=== PATIENT | female | born 1950 | race Caucasian/White ===

== ENCOUNTER 2017-03-20 05:43 | Inpatient (IN) | payer OTHER ==
[2017-03-20] VITALS (7 sets, daily range): BP systolic 101–161; BP diastolic 48–84
[~2017-03-20] VITALS: Ht 152.4 cm; Wt 108.9 kg
--- NOTE | ~2017-03-20 | O ---
[facility] [place] [address] OPERATIVE REPORT Name: ZANE IBARRA Room #: 407-P [facility] IN M.R.#: [id number] Admission: 03/20/17 Attend Phys: Matti Cooper MD Discharge: Date of : 50 Report #: [id number] THIS REPORT FOR: //name// CC: DAMARI Cooper Physician staff DATE OF SERVICE: 03/20/2017 PREOPERATIVE DIAGNOSIS: Right foot Lisfranc fracture dislocation. POSTOPERATIVE DIAGNOSIS: Right foot Lisfranc fracture dislocation. PROCEDURE: Right foot Lisfranc percutaneous screw fixation. SURGEON: Matti Cooper M.D. ANESTHESIA: General. ESTIMATED BLOOD LOSS: Minimal. DRAINS: None. TOURNIQUET TIME: 18 minutes. DESCRIPTION OF PROCEDURE: The patient brought to the operating room where she was placed under general anesthesia. Once under adequate general anesthesia, her right lower extremity was prepped and draped in sterile manner. The extremity was elevated, exsanguinated, tourniquet placed to 300 mmHg. Utilizing fluoroscopy for guidance, a bone reduction tenaculum was placed at the base of the second metatarsal to the medial cuneiform across the Lisfranc joint. Once in place, fixation was then achieved across the joint with a single 4.0 cannulated screw placed under fluoroscopic guidance. Excellent fixation and alignment was achieved in this manner as verified under fluoroscopy. Once complete, the wound was irrigated copiously and closed with chio for the skin. The wounds were dressed with Xeroform, 4 x 4s, and a sterile soft compressive dressing was placed. Tourniquet was let down 18 minutes. Toes were pink and warm with good capillary refill. There were no complications from the procedure. The patient tolerated the procedure well and went to the recovery room without incident. <ELECTRONICALLY SIGNED> By: Matti Cooper MD 03/23/17 [id number] Matti Cooper MD /nt
[~2017-03-20 05:43] MED LIST: ASPIR 8181 MG PO; CARVEDILOL3.125 MG PO; DICLOFENAC SODI75 MG PO; FLEXERIL PO; LASIX 20 MG TAB20 MG PO; NEXIUM40 MG PO; SINGULAIR 10 MG10 M1 PO; SYMBICORT160 MCG/4. INH; SYNTHROID100 MCG PO; VENTOLIN HFA INH8 GM INH
[2017-03-20 09:30] LABS: CALCIUM 8.5 mg/dL (8.5-10.1); POTASSIUM 3.3 mmol/L (3.5-5.1)
[2017-03-21 00:44] VITALS: BP 153/68
[2017-03-21 03:09] VITALS: BP 134/79
[2017-03-21 03:14] VITALS: BP 130/75
[2017-03-21 03:41] LABS: POTASSIUM 3.6 mmol/L (3.5-5.1)
[2017-03-21 03:42] LABS: HEMATOCRIT 28.4 % (37.0-47.0); HEMOGLOBIN 9.1 gm/dL (12.0-15.0)
[2017-03-21 08:20] VITALS: BP 141/68
[2017-03-21 11:03] LABS: CREATININE 1.7 mg/dL (0.6-1.0)
[2017-03-21 16:20] VITALS: BP 112/51
[2017-03-21 20:00] VITALS: BP 110/63
[2017-03-22 04:00] VITALS: BP 131/70
[2017-03-22 04:27] LABS: CALCIUM 8.1 mg/dL (8.5-10.1); CREATININE 1.3 mg/dL (0.6-1.0); MAGNESIUM 1.9 mg/dL (1.8-2.4); POTASSIUM 3.9 mmol/L (3.5-5.1)
[2017-03-22 07:50] VITALS: BP 111/54
[2017-03-22 16:20] VITALS: BP 114/59
[2017-03-22 20:30] VITALS: BP 103/43
[2017-03-23 03:50] VITALS: BP 130/62
[2017-03-23 04:42] LABS: CALCIUM 8.3 mg/dL (8.5-10.1); CREATININE 1.3 mg/dL (0.6-1.0); POTASSIUM 4.2 mmol/L (3.5-5.1)
[2017-03-23 08:29] VITALS: BP 132/63
[2017-03-23 20:30] VITALS: BP 135/74
[2017-03-24 04:09] VITALS: BP 149/68
[2017-03-24] MEDS ORDERED: PERCOCET 7.5-31 EAC1 PO (07:56)
[2017-03-24] MEDS ORDERED: ASA5UEC PO (07:57)
[2017-03-24 09:08] VITALS: BP 142/52
[2017-03-24 09:42] VITALS: BP 142/52
== END 2017-03-24 17:49 | DRG 503 ==
LOC: EDSTATUS 05:43 → TBA 05:43 → OR 05:43 → TBA 05:44 → OR 12:11 → PRE 13:42 → 4N 13:59
PROVIDERS: Internal Medicine; Orthopaedic Surgery Foot and Ankle Surgery
PROC: 0QSL34Z Reposition Right Tarsal with Internal Fixation Device, Percutaneous Approach (ICD-10-PCS; principal; 2017-03-20)
DX: S92.301A Fracture of unspecified metatarsal bone(s), right foot, initial encounter for closed fracture (principal); N17.0 Acute kidney failure with tubular necrosis; E87.6 Hypokalemia; I10 Essential (primary) hypertension; F41.9 Anxiety disorder, unspecified; X58.XXXA Exposure to other specified factors, initial encounter; Y93.89 Activity, other specified; Y92.89 Other specified places as the place of occurrence of the external cause; Z88.8 Allergy status to other drugs, medicaments and biological substances; Z91.030 Bee allergy status; Z91.041 Radiographic dye allergy status; Y99.8 Other external cause status
CPT/HCPCS: 10790; 50010; 50101; 50386; 51122; 51412; 57091; 62110; 62900; 70005